=== PATIENT | female | born 1960 | race Caucasian/White ===

== ENCOUNTER 2025-02-20 17:30 | Emergency (ER) | payer OTHER, SELFPAY ==
[2025-02-20 17:42] VITALS: BP 137/79; PULSE 77; RESP 18; TEMP 37.1; O2SAT 98
[2025-02-20 17:56] LABS: EDSTREPNEGPOS1 Negative (Negative)
--- NOTE | 2025-02-20 19:28 | ED_ITS ---
HPI - URI/Sore Throat General Chief Complaint: Upper Respiratory Infection Stated Complaint: Sore Throat Time Seen by Provider: 02/20/25 17:45 Source: patient and RN notes reviewed Mode of arrival: ambulatory Limitations: no limitations History of Present Illness HPI Narrative: 62-year-old female presents [facility] complaining of sore throat and congestion proximally 3 days. Patient unsure of it allergies are strep throat. Patient denies any cough, fevers, body aches, chills, nausea, vomiting, diarrhea, earache, runny nose, sneezing, itchy eyes, or any other symptoms. Patient denies any chest pain shortness of breath. Patient has been using throat lozenges and salt water rinses to help with symptoms without relief. Related Data Home Medications ?Medication ?Instructions ?Recorded ?Confirmed ?Last Taken ?Type atenolol 25 mg tablet mg 02/20/25 Unknown History perfluorohexyloctane (PF) 100 % drp 02/20/25 Unknown History eye drops (Miebo (PF)) Allergies Allergy/AdvReac Type Severity Reaction Status Date / Time Cephalosporins Allergy Severe Other Verified 02/20/25 17:44 Review of Systems Review of Systems: CONSTITUTIONAL: Denies fever, chills, body aches, or sweats. EYES: Denies visual changes, redness, or discharge. ENT: Positive for congestion, sore throat. Negative for rhinorrhea or otalgia. CARDIOVASCULAR: Denies chest pain, palpitations, or edema. RESPIRATORY: Negative for cough or dyspnea. GASTROINTESTINAL: Denies abdominal pain, nausea, vomiting, or diarrhea. GENITOURINARY: Denies dysuria or hematuria. SKIN: Denies rash or itching. MUSCULOSKELETAL: Denies back pain, joint pain, or myalgia. NEUROLOGIC: Denies headache, numbness, or weakness. PSYCHIATRIC: Denies anxiety or depression. All other systems reviewed are negative, except as documented in HPI. PMFSH Comments At the time of my signature, I reviewed and agree with the nursing past medical, surgical, social, and family history. There is no relevant family history pertinent to the patient complaint. Exam Narrative: GENERAL: This is a well-nourished, well-developed adult, in no apparent distress. They are non ill-appearing, nontoxic appearing. HEAD: normocephalic, atraumatic. EYES: Sclera clear/white. Vision is grossly intact. Conjunctiva normal bilaterally. Extraocular movements intact. EARS: External ears normal, auditory canals clear and without drainage, TMs without erythema or perforation. Hearing grossly intact. NOSE: External nose normal with no obvious nasal discharge, nasal turbinates boggy, no rhinorrhea. THROAT: Mucous membranes moist, posterior pharynx erythematous without exudate. Uvula is midline. Postnasal drip present. NECK: Neck supple, non-tender without lymphadenopathy, masses or thyromegaly. CARDIOVASCULAR: Regular rate and rhythm without murmurs, gallops, or rubs. RESPIRATORY: Clear to auscultation. Breath sounds equal bilaterally. No wheezes, rales, or rhonchi. SKIN: warm, Dry, intact with no suspicious lesions or rash, good texture and turgor. NEURO: awake, alert, and oriented to person, place and time. There were no obvious focal neurologic abnormalities. EXTREMITIES: No joint tenderness, effusion, or edema noted. BACK: Nontender without deformity. Course Course Emergency Course: Portions of this record may have been created with voice recognition software Level of Care: Express Care Visit Vital Signs Vital signs: Vital Signs Temperature 98.7 F 02/20/25 17:42 Pulse Rate 77 02/20/25 17:42 Respiratory Rate 18 02/20/25 17:42 Blood Pressure 137/79 02/20/25 17:42 Pulse Oximetry 98 02/20/25 17:42 Oxygen Delivery Room Air 02/20/25 17:42 Temperature 98.7 F 02/20/25 17:42 Pulse Rate 77 02/20/25 17:42 Respiratory Rate 18 02/20/25 17:42 Blood Pressure 137/79 02/20/25 17:42 Pulse Oximetry 98 02/20/25 17:42 Oxygen Delivery Room Air 02/20/25 17:42 MDM - URI/Sore Throat MDM Narrative Medical decision making narrative: Rapid strep negative. Throat culture pending Symptoms appear to be consistent allergic rhinitis. Advised [id number] antihistamines and antihistamine sprays. Also recommend Flonase. Discussed physical exam findings. Advised supportive measures and signs/symptoms to go to the ER. Pt is appropriate for outpt treatment and f/u. Differential Diagnosis Differential diagnosis: Likely upper respiratory infection, pharyngitis and other (Allergies, allergic rhinitis) Lab Data Attestation: I reviewed the patient's lab results. Labs: Lab Results 02/20/25 Range/Units 17:54 POC Grp A Strep Screen Negative (Negative) Discharge Plan Discharge Clinical Impression: Allergic rhinitis Qualifiers: Allergic rhinitis trigger: unspecified Allergic rhinitis seasonality: unspecified Qualified Code(s): J30.9 - Allergic rhinitis, unspecified Patient Disposition: Home Condition: Stable Instructions: Allergies (ED), Postnasal Drip (DC) Additional Instructions: Your rapid strep swab was negative today at [facility]. You will be notified in a few days if the culture comes back positive for strep, and appropriate antibiotics will be called in for you at that time. Please take Zyrtec or Claritin as needed for allergy symptoms. You may also use Flonase or azelastine to help with congestion. Use throat lozenges, salt water rinses, or warm peppermint tea as needed to help with throat pain. Follow-up with PCP in 3-5 days. If your symptoms worsen, he developed difficulty breathing, difficulty swallowing, excessive drooling, or any concerns please go to the ER immediately. Patient Language: Greenlandic Prescriptions: No Action atenolol 25 mg tablet Miebo (PF) 100 % drops Follow-up/Referrals: Roger,Primo Jimenez MD [Primary Care Provider] - Time of Disposition: 18:05
== END 2025-02-20 18:14 | disposition home or self-care (01) ==
PROVIDERS: PCP Internal Medicine
DX: J30.9 Allergic rhinitis, unspecified (principal)
CPT/HCPCS: 87081; 87880; 99203; G0463